=== PATIENT | male | born 1990 | race Caucasian/White ===

== ENCOUNTER 2023-06-03 23:40 | Emergency (ER) | payer SELFPAY ==
[~2023-06-03] VITALS: Ht 170.2 cm; Wt 95.0 kg
[2023-06-03 23:48] VITALS: BP 180/110; PULSE 101; RESP 18; TEMP 98.2; O2SAT 100
== END 2023-06-04 10:33 | disposition left against medical advice (07) ==
LOC: ER 06-04 00:08
DX: M54.2 Cervicalgia (principal); Z53.21 Procedure and treatment not carried out due to patient leaving prior to being seen by health care provider
CPT/HCPCS: 99281; 99283